=== PATIENT | male | born 1940 | race Caucasian/White ===

== ENCOUNTER 2017-07-27 14:11 | Emergency (ER) | payer MEDICARE, BC ==
[2017-07-27 15:27] LABS: Bilirubin Negative (Negative); Blood, Urine Trace (Negative); Glucose, Urine (Dipstick) Negative (Negative); Ketone, Urine Negative (Negative); Nitrite Negative (Negative); Protein, Urine (Dipstick) Negative (Neg-Trace); Urobilinogen 0.2 mg/dL (0.2-1.0)
[2017-07-27] MEDS ORDERED: Ketorolac Tromethamine 30 MG/ML VIAL ONE (15:29)
[2017-07-27] MEDS ORDERED: Morphine 4 MG/ML VIAL ONE (15:29)
[2017-07-27 15:50] LABS: Bacteria/HPF None Seen HPF (None Seen); Hyaline Casts/LPF 0-3 HYALINE CAST LPF (0-3 Hyaline); RBC/HPF 0-3 HPF (0-3); Squamous Epithelial None Seen HPF (0-3); WBC/HPF None Seen HPF (0-3)
--- NOTE | 2017-07-27 15:59 | RAD ---
EXAM: THREE VIEWS LUMBAR SPINE: HISTORY: Pain. COMPARISON: None. FINDINGS: There are 5 lumbar-type vertebral bodies. Vertebral body height is maintained. No fracture. Extens dmitri osteophyte formation. There are degenerative changes of the posterior elements at L4-L5 and L5-S 1. Vascular calcifications are identified. IMPRESSION: 1. Ankylosis of the lumbar spine. 2. No fracture. Further evaluation with MRI, nonemergently if clinically warranted. POS: [facility]
== END 2017-07-27 18:43 | disposition home or self-care (01) ==
LOC: ERS 14:11
DX: M62.830 Muscle spasm of back (principal); I10 Essential (primary) hypertension; Z79.899 Other long term (current) drug therapy
CPT/HCPCS: 72100; 81003; 81015; 96372; J1885; J2270

== ENCOUNTER 2017-07-31 13:16 | Outpatient (CLI) | payer MEDICARE, BC ==
--- NOTE | 2017-07-31 16:46 | MRI ---
MRI LUMBAR SPINE NONCONTRAST: History: Lumbar radiculopathy, M54.16 Comparison: 01-05-15 FINDINGS: L1-2: Disc desiccation is seen. Bilateral facet hypertrophy is seen. No significant degree of central stenosis seen. The neural foramen are patent. L2-3: Disc desiccation is seen. There is bilateral facet and ligamentum flavum hypertrophy. No signif icant degree of central stenosis seen. The neural foramen are patent. L3-4: Disc desiccation is seen. Bilateral facet and ligamentum flavum hypertrophy is seen. The patien t has had a previous L4 laminotomy. No significant degree of central spinal stenosis is seen. Moderat e bilateral neural foraminal narrowing also present. L4-5: There is disc desiccation and disc space height loss. Broad based disc osteophyte complex is se en centrally. Moderate bilateral facet hypertrophy is seen. This results in mild central and moderate left L4-5 lateral recess stenosis. This is not significantly changed since the previous comparison e xam. There is some compression of the left L5 nerve root as it passes through the L4-5 lateral recess . There is also some moderate narrowing of the left L4-5 neural foramen. This is stable and unchanged since the previous comparison MRI. L5-S1: Mild facet hypertrophy is seen. There is some disc desiccation. No significant degree of centr al stenosis is seen. Moderate bilateral neural foraminal narrowing is seen due to facet hypertrophic changes as well as broad based foraminal osteophytes which extend into the neural foramen. This is st able and unchanged. IMPRESSION: Interval L3-4 laminotomy. No other significant interval change is seen. POS: [facility]
== END 2017-07-31 13:17 | disposition home or self-care (01) ==
LOC: TBSIIMAG 13:16
PROVIDERS: ATTEND Neurological Surgery
DX: M54.16 Radiculopathy, lumbar region (principal); Z98.890 Other specified postprocedural states
CPT/HCPCS: 72148

== ENCOUNTER 2018-01-28 09:36 | Outpatient (CLI) | payer MEDICARE, BC ==
--- NOTE | 2018-01-28 11:37 | MRI ---
CERVICAL SPINE MRI WITHOUT CONTRAST: HISTORY: Occipital headache, mainly on the right side. Bilateral hand numbness. COMPARISON: None. TECHNIQUE: MRI cervical spine is performed without intravenous Gadolinium administration. Multisequential, mult iplanar imaging is performed. FINDINGS: Appropriate T1 marrow signal intensity of the cervical vertebrae. Vertebral body height is maintaine d. There is no fracture. There is abnormal T1 marrow signal hypointensity with associated T2 and ST IR hyperintensity involving the T2 vertebral body. Evaluation is limited and incomplete. Dedicated thoracic spine imaging is recommended. Visualized brain parenchyma, cervicomedullary junction, cervical cord, and the upper thoracic cord kenny ve a normal size and signal intensity. C2-C3: Desiccation without significant loss of disk space height. No significant central canal sten osis. Neural foramina are patent bilaterally. C3-C4: Central/right paracentral disk-osteophyte complex. Mass effect upon the ventral and right pa racentral central spinal canal. Subarachnoid space is still maintained. No significant mass effect upon the cervical cord. No significant central canal stenosis. Degenerative change of bilateral unc overtebral joints results in moderate to severe right and left foraminal narrowing. C4-C5: Broad-based disk-osteophyte complex abuts the thecal sac. Mild central canal stenosis. No s ignificant deformity upon the thoracic cord. No T2 hyperintensity of the cord. Degenerative change of bilateral uncovertebral joints in moderate to severe bilateral foraminal narrowing. C5-C6: Broad-based disk-osteophyte complex abuts the thecal sac. Mild mass effect upon the ventral thecal sac with preservation of ventral subarachnoid space. No significant mass effect upon the cord . No T2 hyperintensity of the cord. Degenerative change of bilateral uncovertebral joints results i n severe right and left foraminal narrowing. C6-C7: No significant disk-osteophyte complex. No significant central canal stenosis. Degenerative change of bilateral uncovertebral joints results in moderate to severe right and moderate left john inal narrowing. C7-T1: There is a central disk-osteophyte complex that abuts the thecal sac. Ventral subarachnoid s pace is maintained. Mild central canal stenosis. No T2 hyperintensity of the cord. Degenerative ch cirilo of bilateral uncovertebral joints results in mild right and left foraminal narrowing. IMPRESSION: 1. No significant/high-grade central canal stenosis. There are varying degrees of significant john inal narrowing as detailed above. 2. Irregular signal intensity involving the T2 vertebral body, incompletely evaluated. Findings may be on the basis of degenerative change. No evidence of fracture throughout the visualized cervical and upper thoracic spine. Dedicated thoracic spine MRI is recommended. POS: [facility]
== END 2018-01-28 09:37 | disposition home or self-care (01) ==
LOC: TBSIIMAG 09:36
PROVIDERS: ATTEND Psychiatry & Neurology Neurology
DX: R51 Headache (principal); R93.8 Abnormal findings on diagnostic imaging of other specified body structures
CPT/HCPCS: 72141

== ENCOUNTER 2018-04-17 07:40 | Outpatient (CLI) | payer MEDICARE, BC ==
--- NOTE | 2018-04-17 09:34 | MRI ---
MRI LUMBAR SPINE: History: Right knee pain. Technique: Multiplanar, multisequence noncontrast enhanced MRI images of the lumbar spine obtained on 04-17-18. Comparison: 07-31-17 FINDINGS: Images demonstrate multilevel disc space height loss. There is some signal abnormality compatible wit h edema in the L1-2 and L2-3 intervertebral disc spaces, unchanged since the previous exam. No eviden ce of adjacent areas of edema seen in the endplates to suggest osteomyelitis. L1-2 and L2-3 levels ar e stable. L3-4: Disc desiccation is seen. There is a broad based disc bulge with bilateral facet and ligamentum flavum hypertrophy. This results in some moderate bilateral L3-4 neural foraminal narrowing. No sign ificant degree of central spinal stenosis is seen. No significant interval change is noted since the previous exam. L4-5: Disc desiccation is seen. There is a broad based disc bulge which is slightly asymmetric promin ent to the left L4-5 lateral recess, mildly compressing the left L5 nerve root in the lateral recess region. This is stable and unchanged. There is moderate left L4-5 neural foraminal narrowing seen. Th e patient has had previous L4 laminotomy changes. No significant interval change is seen. L5-S1: Some disc desiccation is seen. Some Modic type I changes seen in the inferior endplate of L5 a nd superior endplate of S1. Similarly, some edema is seen in the left L4 vertebra. This is also stabl e and unchanged. No significant interval changes noted since the previous comparison MRI. IMPRESSION: Stable MRI appearance of the lumbar spine. Multilevel lumbar degenerative change is seen. No signific ant evidence of acute interval changes noted. POS: [facility]
== END 2018-04-17 07:41 | disposition home or self-care (01) ==
LOC: TBSIIMAG 07:40
PROVIDERS: ATTEND Orthopaedic Surgery
DX: M47.26 Other spondylosis with radiculopathy, lumbar region (principal)
CPT/HCPCS: 72148

== ENCOUNTER 2019-07-31 09:20 | Outpatient (CLI) | payer MEDICARE ==
--- NOTE | 2019-07-31 11:33 | MRI ---
Brain MRI with and without contrast: 07/31/2019 COMPARISON: None HISTORY: Right-sided trigeminal neuralgia TECHNIQUE: Multiplanar multisequence MR imaging of the brain is obtained with and without contrast us ing a cranial nerve protocol. FINDINGS: The diffusion weighted imaging demonstrates no evidence for acute infarction. There is prominent multifocal periventricular, deep, and subcortical white matter T2 and FLAIR hyperi ntensity, evidence of prominent small vessel disease. Associated patchy areas of increased T2 and FLAIR signal noted within the gregoria. There is prominent associated diffuse cerebral volume loss. Regio nal bone marrow signal intensity within normal limits. No midline shift or mass effect. Intracranial arterial flow voids appear grossly unremarkable on the T2-weighted imaging. Imaged paranasal sinuses/mastoid air cells appear within normal limits. Postcontrast imaging demonstrates no abnormal enhancement within the brain parenchyma. There is a mary jane ewhat tubular area of enhancement anterior to the 5th cranial nerve on the right at the axial level of the skull base/pterygoids measuring 7 mm AP dimension and 4 mm transverse dimension. This is just proximal to the foramen ovale. This is favored to represent a vascular structure, such as a prominent venous plexus ventral to the 5th cranial nerve. For full assessment/confirmation, recommend CT angiogram of the head. 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 Tubular focus of subcentimeter enhancemen t ventral to the 5th cranial nerve on the right just proximal to the foramen ovale. This is favored to represent a vascular structure, such as a prominent venous plexus. It recommend further assessment with CT angiogram head.
[2019-07-31] MEDS ORDERED: Magnevist 469MG/ML 20 ML VIAL ONE (13:50)
== END 2019-07-31 09:21 | disposition home or self-care (01) ==
LOC: TBSIIMAG 09:20
PROVIDERS: ATTEND Family Medicine
DX: G50.0 Trigeminal neuralgia (principal); G93.89 Other specified disorders of brain
CPT/HCPCS: 70553; 82565; A9579

== ENCOUNTER 2019-09-01 10:40 | Outpatient (CLI) | payer MEDICARE, BC ==
--- NOTE | 2019-09-01 12:18 | ULT ---
GALLBLADDER ULTRASOUND: Date: 09/01/19 HISTORY: Hyperbilirubinemia. FINDINGS: Gallbladder is mildly contracted and not well evaluated. No definite gallstones identified. The commo n bile duct is poorly imaged, but as visualized measures 5 mm. There is suggestion of intrahepatic du ctal dilatation which is also poorly evaluated. The pancreas is obscured. The right kidney is imaged and appears unremarkable. IMPRESSION: Exam is limited due to overlying bowel gas. Evaluation of gallbladder is limited due to contracted ga llbladder. No definite gallstones. Suggestion of intrahepatic ductal dilatation. The common bile duct is normal caliber as visualized. Consider further evaluation with CT abdomen with IV contrast. POS: [facility]
== END 2019-09-01 10:41 | disposition home or self-care (01) ==
LOC: BICULT 10:40
DX: R82.2 Biliuria (principal)
CPT/HCPCS: 76705

== ENCOUNTER 2019-09-01 14:44 | Inpatient (IN) | payer MEDICARE, BC ==
[2019-09-01 16:02] LABS: ALT (SGPT) 95 U/L (8-55); AST (SGOT) 91 U/L (5-34); Albumin 3.7 g/dL (3.4-4.8); Alkaline Phosphatase 452 U/L (40-110); Anion Gap 14 mmol/L (10-20); BUN (Urea Nitrogen) 22 mg/dL (8.4-25.7); Bilirubin, Total 20.2 mg/dL (0.2-1.2); Calc. Creatinine Clearance 0 mL/min (70-130); Calcium 9.9 mg/dL (7.8-10.44); Carbon Dioxide 23 mmol/L (23-31); Chloride 102 mmol/L (98-107); Estimated GFR-MDRD 53; Globulin 3.4 g/dL (2.4-3.5); Glucose 121 mg/dL (83-110); Lipase 20 U/L (8-78); Potassium 4.7 mmol/L (3.5-5.1); Protein, Total 7.1 g/dL (5.8-8.1); Sodium 134 mmol/L (136-145)
[2019-09-01 16:07] LABS: Hemoglobin 15.7 g/dL (14.0-18.0); Mean Corpuscular HGB CONC 33.3 g/dL (32.0-36.0); Mean Corpuscular Hemoglobin 35.5 pg (27.0-31.0); Mean Platelet Volume 9.6 fL (7.4-10.4); Platelet Count 150 thou/uL (130-400); RBC Distribution Width 12.8 % (11.5-14.5); Red Blood Cell (RBC) Count 4.42 mill/uL (4.70-6.10); White Blood Cell (WBC) Count 5.9 thou/uL (4.8-10.8)
[2019-09-01 16:33] LABS: Band 3 % (5-11); Eosinophils 2 % (0-10); Lymphocytes 21 % (21-51); MDiff Complete? YES; Macrocytosis SLIGHT = 6-15 cells (100X) (0-5/hpf); Monocytes 15 % (0-10); Neutrophil 58 % (42-75); Platelet Morphology Comment Appears Adequate; Reactive Lymphocytes 1 % (0-10)
--- NOTE | 2019-09-01 18:54 | CT ---
CT ABDOMEN AND PELVIS WITH IV CONTRAST: History: Elevated liver enzymes. Patient has right upper quadrant abdominal pain and elevated Bilirub in. Comparison: None available. FINDINGS: There are calcified granulomata seen at each lung base with linear scarring versus atelectasis at the right lung base. There is a lobulated hypodense mass seen involving the body and tail of the pancreas measuring 7 cm x 2.8 cm. There is a filling defect seen within the main portal vein which extends into portions of th e right hepatic vein, and the splenic vein is also not opacified, likely related to thrombosis of the visualized splenic vein. There is a tiny filling defect seen in a portion of the superior mesenteric vein likely related to nonocclusive thrombus and proximal superior mesenteric vein. The left portal vein is not visualized. There is a hypodense area within the very small left hepatic lobe which likely represent a mass lesio n in this region which measures 5.2 cm x 3.7 cm. A 2.5 cm hypodense irregular lesion is seen in the d ome of the liver. These hypodense lesions may be secondary to metastatic lesions or less likely prima ry lesions. There is also an area of diminished attenuation within the caudate lobe of the liver whic h could potentially represent an additional lesion as well. There is dilatation of the right hepatic ducts. Multiple splenic and calcified granulomata are seen. The bilateral adrenal glands, kidneys, and urinary bladder have a normal CT appearance. Vascular calcifications are seen in the abdominal aorta and involving the iliac arteries. There is irregular soft tissue density seen within the left upper quadrant below the level of the chen creas and just superior to the level of the kidney which with this area grossly measuring 8.4 cm at t ransverse x 1.8 cm AP, which could be related to peritoneal carcinomatosis. No definite additional ar eas of soft tissue density are seen throughout the visualized abdomen or pelvis. An enlarged periport al lymph node is seen measuring 1.9 cm in short axis. A fat containing right inguinal canal is present. 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 Multilevel degenerative changes are present in the spine with calcification in the anterior and longi tudinal ligament. IMPRESSION: 1. Lobulated pancreatic mass involving the tail and portion of the body of the pancreas likely relate d to neoplasm. In addition, there are hypodense areas seen scattered within the liver, which may repr esent metastatic lesions; although, a primary lesion is possible but thought less likely. 2. Findings likely attributable to peritoneal carcinomatosis with irregular soft tissue density seen in the left upper quadrant below the level of the pancreas. An enlarged periportal lymph node is seen . 3. Intrahepatic biliary ductal dilatation involving the right hepatic lobe likely related to the mass in the left hepatic lobe which may be contiguous with the lesion in the caudate lobe. The left hepat ic lobe is very small in size. 4. Nonocclusive thrombus involving the main portal vein with occlusive thrombus within a right portal vein branch. Occlusive thrombus involves the splenic vein with a small amount of thrombus within th e superior mesenteric vein. 5. Fat containing right inguinal canal. 6. Vascular calcifications in the coronary arteries and involving the abdominal aorta and iliac arter ies. Code T POS: [facility]
[2019-09-01] MEDS ORDERED: Enoxaparin Sodium 100 MG/ML SYRINGE ONE (19:53)
[2019-09-01] MEDS ORDERED: Sodium Chloride 0.9% 1,000 ML IV SCH (23:15)
[2019-09-01] MEDS ORDERED: hydrALAZINE 20 MG/ML VIAL SLOW IVP PRN (23:18)
[2019-09-01] MEDS ORDERED: Morphine 4 MG/ML VIAL SLOW IVP PRN (23:18)
[2019-09-01] MEDS ORDERED: Ondansetron PF 4 MG/2 ML Vial IVP PRN (23:18)
[2019-09-01] MEDS ORDERED: Ondansetron ODT 4 MG TAB PO PRN (23:18)
[2019-09-01] MEDS ORDERED: Acetaminophen 325 MG TAB PO PRN (23:18)
[2019-09-01] MEDS ORDERED: Morphine 2 MG/ML SYRINGE SLOW IVP PRN (23:18)
[2019-09-01 23:23] VITALS: BMI 33.5
[2019-09-02] MEDS ORDERED: Mag-Al 1200 mg/1200 mg/30 ML UDCUP PO SCH (01:30)
[2019-09-02] MEDS ORDERED: Pantoprazole 40 MG VIAL IVP SCH ×2 (01:30→21:00)
--- NOTE | 2019-09-02 02:05 | HP ---
PRIMARY CARE PHYSICIAN: Shanta Arzate MD. CHIEF COMPLAINT: Abdominal pain and cramping. HISTORY OF PRESENT ILLNESS: Mr. Elias is a pleasant 79-year-old gentleman who presented to the emergency room after he noticed severe cramping, which started last Sunday. He says it was in the lower part of the abdomen and caused a terrible hurting. He says around that same time he started having loose stools. He says they were not quite diarrheal stools, but were loose and he also noticed a red tint in his urine. He thought it was due to dehydration, so he tried drinking more fluids, but then noticed that it continued. He also says that he has been having worse reflux symptoms and a burning in his throat. He also feels nauseated as well all of the time. He also noted some dry heaving, which started last Sunday. He also says that when he eats, he starts having abdominal pain and cramping, and this started about a week ago. He also says he has lost about 8 pounds in the last week. He saw his primary care physician who ordered a CT scan of the abdomen and pelvis and he also noticed some jaundice, which started today. He called his primary care physician, because he was waiting to get the CT results and she instructed him to go to the ER for evaluation. It appears another CT scan has been done, which demonstrated a mass in the body and tail of the pancreas measuring 7 cm x 2.8 cm and a nonocclusive thrombus in the portal vein and he is being admitted for further evaluation. REVIEW OF SYSTEMS: Other than some sneezing and coughing at night, all other symptoms were reviewed and are negative except for that mentioned in the history of present illness. PAST MEDICAL HISTORY: Significant for hypertension, gastroesophageal reflux disease, chronic headache on the right side of his head and chronic low back pain. PAST SURGICAL HISTORY: He has had a vasectomy surgery for testicular torsion when he was in his teen years and this he has had twice a L3-L4 decompression surgery, knee surgery and shoulder surgery. ALLERGIES: TO PENICILLIN, WHICH CAUSED A RASH. SOCIAL HISTORY: He is , has 4 children. Two of which are biologic. He denies any smoking. He does drink wine about 2 glasses a day. He is retired from farm work and he is originally from [place]. FAMILY HISTORY: Significant for father who had diabetes. Mother who had bone cancer and leukemia. CURRENT MEDICATIONS: 1. Lisinopril 20 mg daily. 2. Valium 10 mg q.8h as needed. 3. Dicyclomine 20 mg as needed. He says in a host of other vitamins. PHYSICAL EXAMINATION: GENERAL: He is alert and oriented. He appears to be in no acute distress. He is well developed and well nourished. VITAL SIGNS: Blood pressure was 141/67, heart rate 86, respiratory rate of 16, temperature is 97.5, O2 saturation is 99% on room air. HEENT: Pupils are equal, round, and reactive. Extraocular muscles are intact. Sclerae are icteric and he also appears jaundiced skin. NECK: There was no adenopathy. No bruits. LUNGS: Clear to auscultation. There is no wheezing. No rales, no rhonchi. CARDIOVASCULAR: He has a normal S1 and S2. I did not appreciate an S3 or S4. No murmurs, clicks, or rubs. ABDOMEN: Soft. He did have some left mid quadrant tenderness. There was no rebound, no guarding, no organomegaly. EXTREMITIES: There is no calf tenderness. No joint effusions. NEUROLOGIC: His cranial nerves 2 through 12 are intact. Muscle strength is 5/5 in both his upper and lower extremities. SKIN AND INTEGUMENT: His skin is icteric and he does have some mild erythematous papule like lesions throughout. Otherwise, no other skin lesions. LABORATORY DATA: Lab results, white blood cell count 7.9, hemoglobin 15.7, hematocrit is 47.2, and platelet count is 150. Sodium is 134, potassium 4.7, chloride is 102, CO2 is 23, BUN of 22, creatinine 1.3, glucose is 121. Bilirubin is 20.2, AST is 91, ALT is 95, alkaline phosphatase is 452. IMAGING: CT scan as previously mentioned, had a fairly large mass 7 x 2 cm in the body and tail of the pancreas plus a nonocclusive thrombus in the portal vein, but an occlusive thrombus in one of the branches. ASSESSMENT: 1. This is an 79-year-old gentleman with a pancreatic mass as well as portal vein thrombosis. He will be admitted to Oncology. He will be placed on clear liquids until midnight and then left n.p.o., started on gentle IV hydration, IV antiemetics as well as medication for pain control. We will consult Gastroenterology for further evaluation. I suspect he will need ERCP and possible stent placement as well as biopsy. 2. For portal vein thrombosis, we will continue with Lovenox for now and then await further recommendations from GI. 3. Hypertension. We will restart lisinopril and also have p.r.n. medications available as needed. Job ID: [id number]
[2019-09-02 04:22] LABS: Anion Gap 13 mmol/L (10-20); BUN (Urea Nitrogen) 21 mg/dL (8.4-25.7); Calc. Creatinine Clearance 98 mL/min (70-130); Calcium 9.1 mg/dL (7.8-10.44); Carbon Dioxide 20 mmol/L (23-31); Chloride 105 mmol/L (98-107); Estimated GFR-MDRD 82; Glucose 110 mg/dL (83-110); Potassium 4.2 mmol/L (3.5-5.1); Sodium 134 mmol/L (136-145)
[2019-09-02 05:38] LABS: Band 7 % (5-11); Hemoglobin 14.4 g/dL (14.0-18.0); Lymphocytes 16 % (21-51); MDiff Complete? YES; Mean Corpuscular HGB CONC 33.8 g/dL (32.0-36.0); Mean Platelet Volume 9.2 fL (7.4-10.4); Monocytes 4 % (0-10); Neutrophil 72 % (42-75); Platelet Count 111 thou/uL (130-400); Platelet Morphology Comment Appears Decreased; RBC Distribution Width 12.7 % (11.5-14.5); White Blood Cell (WBC) Count 5.3 thou/uL (4.8-10.8)
[2019-09-02 06:56] LABS: ALT (SGPT) 82 U/L (8-55); AST (SGOT) 77 U/L (5-34); Albumin 3.2 g/dL (3.4-4.8); Alkaline Phosphatase 389 U/L (40-110); Bilirubin, Total 19.7 mg/dL (0.2-1.2); Protein, Total 6.1 g/dL (5.8-8.1)
[2019-09-02 07:20] LABS: Bilirubin, Direct 14.5 mg/dL (0.1-0.3)
[2019-09-02] MEDS ORDERED: Enoxaparin Sodium 100 MG/ML SYRINGE SC SCH (09:00)
--- NOTE | 2019-09-02 12:31 | RAD ---
Exam: Chest 2 views HISTORY:Pancreatic cancer Comparison: 02/19/2015 FINDINGS: Lungs: No masses or consolidation. Cardiac silhouette: Normal size Pulmonary vessels: Normal Pleural Spaces: Clear Pneumothorax: None Osseous abnormalities: None of acuity. IMPRESSION: Stable exam
[2019-09-02] MEDS ORDERED: Dextrose 5 % And 0.9 % NaCl 1,000 ML IV SCH ×2 (12:45→17:12)
--- NOTE | 2019-09-02 12:52 | CON ---
DATE OF CONSULTATION: REASON FOR CONSULTATION: ? Pancreatic carcinoma with liver metastasis. HISTORY OF PRESENT ILLNESS: This is an 79-year-old male, who was in his usual state of health until about a week ago. At that time, he developed diarrhea, abdominal pain, and progressive yellow-colored surface skin and pruritus. He has also lost 8 pounds of weight since then because he has not been able to eat because of nausea and abdominal pain. He was admitted yesterday and had CT scan of abdomen and pelvis showing 7 cm x 2.8 cm mass in the body and tail of pancreas. This seems to be associated with thrombosis of the portal vein, right hepatic vein, splenic vein, and nonvisualization of the left portal vein. The common bile duct did not seem to be dilated. The gallbladder was small. The liver showed 5.2 x 3.7 cm mass in the left hepatic lobe and 2.5 cm hypodense irregular lesion in the dome of the liver. Enlarged lymph nodes were not noted. Intrahepatic bile duct did not appear to be dilated. PAST MEDICAL HISTORY: Past history positive for GERD, hypertension, headache, and chronic low back pain. PAST SURGICAL HISTORY: Past surgeries include vasectomy, L3-L4 decompression, knee and shoulder surgery. ALLERGIES: DRUGS WITH ADVERSE EFFECT, PENICILLIN. PERSONAL SOCIAL HISTORY: The patient lives with his . He has four children. He does not smoke and drinks two glasses of wine a day. 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 FAMILY HISTORY: Positive for diabetes. Mother had a history of leukemia. OUTPATIENT MEDICATIONS: 1. Lisinopril 20 mg a day. 2. Valium 10 mg q.8 hours as needed. 3. Dicyclomine 20 mg p.r.n. REVIEW OF SYSTEMS: Ten-point system review was done and essentially negative other than what has been mentioned during history of present illness. PHYSICAL EXAMINATION: GENERAL: The patient is obviously jaundiced. He is alert and oriented. He is a large frame individual and appears well nourished. VITAL SIGNS: Temperature 97, pulse 78, respirations 16, and blood pressure 142/74. HEENT: Unremarkable. LYMPHATICS: Lymph nodes not palpable in cervical, supraclavicular, axillary, or inguinal area. CHEST: Clear to auscultation. HEART: S1 and S2. Regular rhythm. ABDOMEN: Soft and full. Bowel sounds normal. No organomegaly. EXTREMITIES: Without pedal edema. LABORATORY DATA: CBC shows WBC 5300, hemoglobin 14.4, and platelet count has varied between 111,000 to 150,000. Differential shows 72% neutrophils and 16% lymphocytes. His chemistry profile; BUN, creatinine, calcium, and electrolytes were normal. Total bilirubin has increased from 11.6 on 08/29 to 19.7 mg today. AST and ALT are slightly elevated. Alkaline phosphatase is elevated at 389. Direct bilirubin is 14.5 and albumin is 3.2. CT scan chest and abdomen as mentioned earlier. 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 He is deeply jaundiced. I discussed the case with the radiologist, who feel that it will be difficult to biopsy the lesions in the liver. The radiologists are going to consult him of themselves and will later call me, but it appears that his liver lesions are not going to be biopsiable. Gastroenterology has been consulted and hopefully will be able to drain something to reduce his hyperbilirubinemia and I am hoping they can find some material for histologic diagnosis. I have ordered a chest x-ray, BRCA testing, CEA, and CA-19-9. Somewhere along the line, after the diagnosis has been established, we will have to talk about chemotherapy. Thanks very much for allowing me to participate in this patient's care. He will be followed by Oncology Service. Job ID: [id number]
--- NOTE | 2019-09-02 16:44 | CON ---
DATE OF CONSULTATION: 09/02/2019 CHIEF COMPLAINT: Dark urine. HISTORY OF PRESENT ILLNESS: Mr. Elias is an 79-year-old man, who started with lower abdominal cramping and light-colored loose stools a week and half ago. He has had some reflux symptoms and postprandial epigastric bloating discomfort that radiates up towards his chest over the last few weeks. He has had no blood in the stool. A few days ago, he started having itching and noticed that his urine had become dark, which he thought was blood. He saw his primary doctor regarding the dark urine a few days ago, and he states that a urinalysis was done, which was negative for blood. A few days ago, he developed more diffuse pruritus. Due to the ongoing dark urine, he came on to the emergency room [address] scan of the abdomen and pelvis was performed, that showed a pancreatic mass and evidence of peritoneal carcinomatosis and intrahepatic biliary dilation. He was found to have severe obstructive jaundice. PAST MEDICAL HISTORY: 1. Hypertension. 2. Gastroesophageal reflux disease. PAST SURGICAL HISTORY: 1. Lumbar back surgery. 2. Vasectomy. FAMILY HISTORY: Negative for GI malignancy. SOCIAL HISTORY: He has a couple glasses of wine daily. No smoking or drugs. 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 ALLERGIES: PENICILLIN. MEDICATIONS: Prior to admission: 1. Lisinopril. 2. Valium. 3. Dicyclomine. 4. Vitamin supplements. REVIEW OF SYSTEMS: Negative x10 systems reviewed, except as stated in history of present illness. PHYSICAL EXAMINATION: VITAL SIGNS: Temperature 97.5, pulse 84, and blood pressure 139/70. GENERAL: He is in no acute distress. He is alert and oriented x3. He is jaundiced. HEENT: His eyes have scleral icterus. His oropharynx is clear without lesions. No cervical or supraclavicular lymphadenopathy. LUNGS: Clear to auscultation bilaterally. HEART: Regular rate and rhythm without murmur. ABDOMEN: Soft, nontender, and nondistended. Bowel sounds are present. EXTREMITIES: No lower extremity edema. NEUROLOGIC: Cranial nerves are grossly intact. LABORATORY DATA: White blood cell count 5.3, hemoglobin 14.4, and platelets 111. INR 1.0. Sodium 134, potassium 4.2, chloride 105, CO2 of 20, BUN 21, and creatinine 0.89. Bilirubin 19.7 up from 11.6 on 08/29, AST is 77, ALT 82, and alkaline phosphatase is 389. CEA 87. IMAGING STUDIES: CT scan shows intrahepatic duct dilation in the right lobe of the liver. He has a 7 cm mass in the body and tail of the pancreas. He has mass in the left hepatic lobe, measuring 5.2 cm. Another 2.5 cm lesion in the dome of the liver. He had findings suggestive of peritoneal carcinomatosis with soft tissue density in the left upper quadrant below the pancreas, superior to the kidney, measuring up to 8.4 cm. IMPRESSION: 1. 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 There is evidence of obstruction of the right biliary intrahepatic system; however, the left system is not well visualized and the common bile duct does not appear to be dilated. There is no mass in the head of the pancreas. There is apparently a thrombus in the splenic vein, portal vein, and hepatic vein. 2. Obstructive jaundice with likely proximal biliary metastatic disease. 3. Portal vein thrombosis. RECOMMENDATIONS: I discussed his case with Dr. Vega with Oncology. The patient had good functional status prior to this, and from a functional status, he should be able to tolerate chemotherapy well. He would need biliary drainage prior to that and also diagnosis. Given the proximal biliary stricture, I will recommend a referral for ERCP in [place] as he may need stenting of right and left hepatic system and more proximal drainage, which is much more complicated ERCP. Also, endoscopic ultrasound could be considered for further evaluation of the pancreatic mass and diagnosis. Again, referral to [place] for this will be required. Job ID: [id number]
[2019-09-02] MEDS ORDERED: cloNIDine 0.1 MG TAB PO PRN (17:11)
[2019-09-02 17:13] VITALS: TEMP 97.7
[2019-09-02] MEDS ORDERED: traMADol HCl 50 MG TAB PO PRN (17:17)
[2019-09-02] MEDS ORDERED: Lisinopril 20 MG TAB PO SCH (17:45)
[2019-09-02 18:06] VITALS: BP 170/71
--- NOTE | 2019-09-03 08:19 | DIS ---
DATE OF ADMISSION: 09/01/2019 DATE OF DISCHARGE: 09/02/2019 DISCHARGE DISPOSITION: To [facility] in [place]. BRIEF HOSPITAL COURSE: The patient is an 79-year-old male, who was recently diagnosed with a pancreatic mass, presented to the hospital with generalized weakness along with abdominal cramping, dark urine and light colored loose stool. His workup was consistent with obstructive jaundice. The CT scan of the abdomen and pelvis in the emergency room showed a lobulated pancreatic mass involving the tail and the portion of the body of the pancreas along with possible peritoneal carcinomatosis. It also showed intrahepatic biliary ductal dilatation along with a nonocclusive thrombus involving the main portal vein with occlusive thrombus within the right portal vein. There was occlusive thrombus involving the splenic vein as well. He was monitored in Oncology Unit. He was started on Lovenox for portal vein thrombosis. He was evaluated by Gastroenterology and Oncology Service. Per GI recommendation, the patient was transferred to [facility] for ERCP with possible stenting. FINAL DIAGNOSES: 1. Abdominal pain with generalized weakness secondary to obstructive jaundice. 2. Pancreatic mass with possible peritoneal carcinomatosis. 3. Portal and splenic vein thrombosis. 4. Abnormal LFTs secondary to obstructive jaundice. 5. History of alcohol abuse. 6. Hypertension. 7. Gastroesophageal reflux disease. 8. Thrombocytopenia. 9. Obesity with a BMI of 33.6. 10. Macrocytosis. 11. Hyponatremia, present on admission. 12. Acute kidney injury on chronic kidney disease, stage 3, present on admission. SIGNIFICANT LABORATORY DATA: CEA was 87.46. CA-19-9 was 19,023. PLAN: Plan was discussed with the patient in detail. He stated understanding. Job ID: [id number]
[2019-09-03] MEDS ORDERED: Multivit, Therapeutic 1 TAB PO SCH (09:00)
[2019-09-03] MEDS ORDERED: Folic Acid 1 MG TAB PO SCH (09:00)
[2019-09-03] MEDS ORDERED: Thiamine 100 MG TAB PO SCH (09:00)
[2019-09-03] MEDS ORDERED: Lisinopril 20 MG TAB PO SCH (09:00)
== END 2019-09-02 19:20 | disposition short-term general hospital (02) | DRG 435 ==
LOC: ERS 14:44 → ERHOLD 20:02 → ONC 23:08
PROVIDERS: ADMIT Emergency Medicine; ATTEND Emergency Medicine
DX: C78.7 Secondary malignant neoplasm of liver and intrahepatic bile duct (principal); I81 Portal vein thrombosis; C25.1 Malignant neoplasm of body of pancreas; C78.6 Secondary malignant neoplasm of retroperitoneum and peritoneum; E87.1 Hypo-osmolality and hyponatremia; N17.9 Acute kidney failure, unspecified; K21.9 Gastro-esophageal reflux disease without esophagitis; M54.5 Low back pain; D73.5 Infarction of spleen; F10.10 Alcohol abuse, uncomplicated; I12.9 Hypertensive chronic kidney disease with stage 1 through stage 4 chronic kidney disease, or unspecified chronic kidney disease; N18.3 Chronic kidney disease, stage 3 (moderate); D69.6 Thrombocytopenia, unspecified; E66.9 Obesity, unspecified; Z68.33 Body mass index [BMI] 33.0-33.9, adult; Z98.52 Vasectomy status; Z88.0 Allergy status to penicillin; Z79.899 Other long term (current) drug therapy; G89.29 Other chronic pain
CPT/HCPCS: 36415; 71046; 74177; 76705; 80048; 80053; 80076; 81001; 82378; 83690; 85025; 86301; 87045; 87046; 87086; 87177; 87338; 87427; 87449; 96360; 96361; 96372; C9113; J1650; J2405